=== PATIENT | male | born 1985 | race Caucasian/White ===

== ENCOUNTER 2020-10-13 09:45 | Outpatient (REF) | payer BC, SELFPAY | END 2020-10-13 09:46 | disposition home or self-care (01) | LOC: HO.LAB 09:45 | PROVIDERS: PCP Internal Medicine; Visit Provider Internal Medicine | DX: Z20.828 Contact with and (suspected) exposure to other viral communicable diseases (principal) | CPT/HCPCS: C9803; U0003 ==

== ENCOUNTER 2021-07-03 14:18 | Outpatient (REF) | payer OTHER, SELFPAY ==
[2021-07-03 15:23] LABS: Influenza A PCR NEGATIVE (Negative); Influenza B PCR NEGATIVE (Negative); Resp Syncy Virus RNA Qual PCR NEGATIVE (Negative); SARS COV2 PCR INHOUSE NEGATIVE (Negative)
== END 2021-07-03 14:19 | disposition home or self-care (01) ==
LOC: HO.LNP 14:18
PROVIDERS: Visit Provider Family Medicine
DX: Z20.822 Contact with and (suspected) exposure to COVID-19 (principal)
CPT/HCPCS: 0241U

== ENCOUNTER 2021-07-07 11:47 | Outpatient (REF) | payer OTHER, SELFPAY ==
[2021-07-07 13:07] LABS: Influenza A PCR NEGATIVE (Negative); Influenza B PCR NEGATIVE (Negative); Resp Syncy Virus RNA Qual PCR NEGATIVE (Negative); SARS COV2 PCR INHOUSE NEGATIVE (Negative)
== END 2021-07-07 11:48 | disposition home or self-care (01) ==
LOC: HO.LNP 11:47
PROVIDERS: Visit Provider Family Medicine
DX: Z20.822 Contact with and (suspected) exposure to COVID-19 (principal)
CPT/HCPCS: 0241U

== ENCOUNTER 2021-11-20 02:29 | Emergency (ER) | payer OTHER, SELFPAY ==
[2021-11-20 03:00] VITALS: BP 131/77; PULSE 96; RESP 16; TEMP 36.6; O2SAT 96; BMI 23.6
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
[2021-11-20] MEDS: Diphth,Pertus(ACell),Tet Adult 0.5 ML SYRINGE IM (04:15)
--- NOTE | 2021-11-20 04:37 | PC.NURSE ---
Reviewed pt care plan and discharge instructions. Pt verbalized understanding.
[2021-11-20 07:33] LABS: HIV AB/AG Nonreactive (Nonreactive); HIV Num 1 0.07 S/CO (0.00-0.99); ~HepC Num1 0.06 S/CO (0.00-0.79); ~Hepatitis C Antibody Nonreactive (Nonreactive)
== END 2021-11-20 04:38 | disposition home or self-care (01) ==
PROVIDERS: Emergency Provider Student in an Organized Health Care Education/Training Program; PCP Internal Medicine
DX: S00.31XA Abrasion of nose, initial encounter (principal); S10.91XA Abrasion of unspecified part of neck, initial encounter; S01.21XA Laceration without foreign body of nose, initial encounter; Y35.891A Legal intervention involving other specified means, law enforcement official injured, initial encounter; Y93.89 Activity, other specified; Y92.410 Unspecified street and highway as the place of occurrence of the external cause; Y99.0 Civilian activity done for income or pay
CPT/HCPCS: 36415; 86803; 87389; 90471; 90715; 99283; 99284

== ENCOUNTER → 2021-11-25 09:14 | Outpatient (BNVA) | payer OTHER, SELFPAY | PROVIDERS: PCP Internal Medicine; Visit Provider Physician Assistant Medical | DX: Z77.21 Contact with and (suspected) exposure to potentially hazardous body fluids (principal) | CPT/HCPCS: 36415; 84450; 84460; 86706; 99202 ==

== ENCOUNTER → 2022-01-13 09:03 | Outpatient (BNVA) | payer OTHER, SELFPAY | PROVIDERS: PCP Internal Medicine | DX: Z77.21 Contact with and (suspected) exposure to potentially hazardous body fluids (principal) | CPT/HCPCS: 36415; 84450; 84460; 87389; 99211 ==

== ENCOUNTER → 2022-02-19 08:15 | Outpatient (BNVA) | payer OTHER, SELFPAY | PROVIDERS: PCP Internal Medicine | DX: Z77.21 Contact with and (suspected) exposure to potentially hazardous body fluids (principal) | CPT/HCPCS: 36415; 84450; 84460; 86803; 87389; 99211 ==

== ENCOUNTER 2022-05-04 11:42 | Outpatient (REF) | payer OTHER, SELFPAY ==
[2022-05-04 13:37] LABS: Hematocrit 44.3 % (42.0-52.0); Hemoglobin 15.4 g/dl (14.0-18.0); Mean Corpuscular HGB Conc 34.8 g/dl (31.0-36.0); Mean Corpuscular Hemoglobin 32.4 pg (27.0-33.0); Mean Corpuscular Volume 93.1 fL (80.0-98.0); Mean Platelet Volume 10.9 fL (9.4-12.4); Platelet Count 186 X10*3/uL (160-400); Red Blood Count 4.76 X10*6/uL (4.60-5.80); Red Cell Distribution Width 11.9 % (11.0-16.0); White Blood Count 6.3 X10*3/uL (4.8-10.8)
[2022-05-04 13:57] LABS: Alanine Aminotransferase 27 U/L (0-40); Albumin Level 4.8 g/dL (3.5-5.0); Alkaline Phosphatase 66 U/L (39-117); Anion Gap 11 (12-20); Aspartate Amino Transferase 19 U/L (5-37); Bilirubin Total 0.8 mg/dL (0.0-1.0); Blood Urea Nitrogen 17 mg/dL (9-16); Calcium 9.4 mg/dL (8.4-10.2); Carbon Dioxide 28 mmol/L (22-29); Chloride 106 mmol/L (96-108); Cholesterol 173 mg/dL; Estimated Glomerular Filt Rate > 60; Glucose Random 86 mg/dL (60-115); HDL Cholesterol 51 mg/dL; LDL Cholesterol Calculated 90 mg/dl; Potassium 4.6 mmol/L (3.3-5.1); Sodium 140 mmol/L (135-145); Total Protein 7.7 g/dL (6.5-8.0); Triglycerides 160 mg/dL
[2022-05-04 14:09] LABS: TSH reflex Free T4 1.74 uIU/mL (0.32-4.0)
== END 2022-05-04 11:43 | disposition home or self-care (01) ==
LOC: HO.WFDLDS 11:42
PROVIDERS: Visit Provider Hospitalist
DX: Z00.00 Encounter for general adult medical examination without abnormal findings (principal)
CPT/HCPCS: 36415; 80053; 80061; 84443; 85027

== ENCOUNTER 2022-12-15 11:33 | Outpatient (REF) | payer OTHER, SELFPAY | END 2022-12-15 11:34 | disposition home or self-care (01) | LOC: HO.10HDLNP 11:33 | PROVIDERS: Visit Provider Otolaryngology | DX: H92.01 Otalgia, right ear (principal); H60.90 Unspecified otitis externa, unspecified ear | CPT/HCPCS: 87070; 87102; 87205 ==

== ENCOUNTER 2022-12-23 14:31 | Outpatient (REF) | payer OTHER, SELFPAY ==
[2022-12-24 12:22] LABS: Appearance Urine Cloudy; Color Urine Yellow; Glucose Urine UA Negative (Negative); Leukocyte Esterase Urine Negative (Negative); Nitrite Urine Negative (Negative); PH 5.5 (5.0-9.0); Specific Gravity - Urine 1.025 (1.005-1.025); Urine Blood Negative (Negative); Urine Ketones Negative (Negative); Urine Protein Negative (Neg-Trace)
[2022-12-24 17:03] LABS: CT PCR NOT DETECTED (Not Detect.); NG PCR NOT DETECTED (Not Detect.)
== END 2022-12-23 14:32 | disposition home or self-care (01) ==
LOC: HO.LAB 14:31
PROVIDERS: Visit Provider Nurse Practitioner Family
DX: Z20.2 Contact with and (suspected) exposure to infections with a predominantly sexual mode of transmission (principal)
CPT/HCPCS: 0353U; 81003

== ENCOUNTER 2022-12-24 07:05 | Outpatient (REF) | payer OTHER, SELFPAY ==
[2022-12-24 12:23] LABS: Syphilis Screen Nonreactive (Nonreactive)
[2022-12-24 13:06] LABS: HBS Num1 > 1000.00 mIU/mL (0-7.99); HBc Num1 0.05 S/CO (0.00-0.79); HBsAGNum1 0.32 S/CO (0.00-0.99); Hepatitis B Core Antibody Nonreactive (Nonreactive); Hepatitis B Surface Antigen Negative (Negative); ~HepC Num1 0.06 S/CO (0.00-0.79); ~Hepatitis C Antibody Nonreactive (Nonreactive)
[2022-12-24 13:07] LABS: ~Hepatitis B Surface Antibody REACTIVE (Nonreactive)
[2022-12-24 14:14] LABS: HIV AB/AG Nonreactive (Nonreactive); HIV Num 1 0.07 S/CO (0.00-0.99)
== END 2022-12-24 07:06 | disposition home or self-care (01) ==
LOC: HO.WFDLDS 07:05
PROVIDERS: Visit Provider Nurse Practitioner Family
DX: Z20.2 Contact with and (suspected) exposure to infections with a predominantly sexual mode of transmission (principal); Z11.4 Encounter for screening for human immunodeficiency virus [HIV]
CPT/HCPCS: 36415; 86704; 86706; 86780; 86803; 87340; 87389

== ENCOUNTER 2024-12-10 14:41 | Outpatient (AMB) | payer BC, SELFPAY ==
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
[2024-12-10 14:47] VITALS: BP 112/84; PULSE 102; RESP 12; O2SAT 98; BMI 28.8
== END 2024-12-10 15:27 | disposition home or self-care (01) ==
PROVIDERS: PCP Internal Medicine; Visit Provider Internal Medicine
DX: Z00.00 Encounter for general adult medical examination without abnormal findings (principal); M79.662 Pain in left lower leg; H92.03 Otalgia, bilateral; G89.29 Other chronic pain; F41.8 Other specified anxiety disorders

== ENCOUNTER 2025-06-04 09:25 | Outpatient (REF) | payer BC, SELFPAY ==
--- OUTSIDE RECORDS SUMMARY | 2025-06-04 09:46 | XMS_ITS | Continuity of Care Document ---
Author Name [facility] Organization [facility] Care Team Providers Care Coating Line Worker Name Role Phone [facility] Unavailable Unavailable Problems Combined list of problems from Department of Defense and Veterans Affairs facilities. It does not include entries that were removed or entered in error. Problem Status Onset Date Problem Type Date of Resolution Comments Source Cervical spondylosis without myelopathy Active Condition [facility] Myofascial pain Active Condition [facility] MUSCLE SPASM Active Condition MUSCLE SPASM: Neck and shoulder symptoms c/w acute muscle spasm - decreased range of motion, pain with motion, sharp pain during movement without traumatic injury. Will treat conservatively at this time. No evidence of neurologic dysfunction or involvement. Methocarbamol 500mg; 1-2 tabs q8 prn spasm #24 RF0; pt educated re: risk of medication use Ibuprofen 800mg TID #30 RF0 DoD BRONCHITIS Inactive Condition BRONCHITI S: pt appeared to have been forced by superiors to come to sick clinic, and he only complains of a cough. likely has a mild viral bronchitis. given benzonatate 100mg for 5 days. will return to clinic if sx persist or worsen. DoD visit for: issue repeat prescription for appliance Inactive Condition DoD CONTUSION WITH INTACT SKIN SURFACE - (LOWER) LEG Inactive Condition DoD visit for: examination of subpopulation Active Condition DoD CONTACT DERMATITIS Active Condition DoD UPPER RESPIRATORY INFECTION ACUTE Active Condition DoD visit for: ears / hearing exam Inactive Condition DoD ASSESSMENT OF PATIENT CONDITION WORK-RELATED Active Condition DoD Vaccines Prophylactic Need Against Viral Diseases Inactive Condition DoD Vaccines Prophylactic Need Active Condition DoD Vaccines Prophylactic Need Against Combinations Of Diseases Active Condition DoD Vaccines Prophylactic Need Against Bacterial Diseases Active Condition DoD Spectacles Services Fitting Monofocals (Not For Aphakia) Active Condition DoD visit for: services physical Active Condition DoD visit for: screening exam pulmonary tuberculosis Inactive Condition DoD Allergies, Adverse Reactions, Alerts Combined list of allergies from Department of Defense and Veterans Affairs facilities. It does not include entries that were removed or entered in error. Substance Category Reaction Severity Reaction type Status Date Reported Comments Source No Known Allergies Drug allergy (disorder) active 05/14/2008 [facility] Immunizations Combined list of available immunizations from the Department of Defense and Veterans Affairs facilities. Immunization Series Date Given Administered By Site Reaction Lot Number CVX Code Drug Senior Project Accountant Status Comments Source COVID-19 (MODERNA), MRNA, LNP-S, PF, 100 MCG/0.5 ML DOSE 1 2020 207 complet ed [facility] [place] [facility] [facility] FLU,3 YRS (HISTORICAL) 2014 88 complet ed [facility] [facility] Influenza, seasonal, injectable 1 2012 [id number] Sanofi Pasteur ([facility]) complet ed Influenza , seasonal, injectabl e DoD anthrax vaccine 4 2012 [id number] [facility] ([facility]) complet ed anthrax vaccine DoD typhoid Vi capsular polysaccharid e vaccine 1 2012 [id number] Sanofi Pasteur ([facility]) complet ed typhoid Vi capsular polysacch aride vaccine DoD Influenza, seasonal, injectable, preservative free 1 2011 [id number] [employer] (CS) complet ed Influenza , seasonal, injectabl e, preservat hayes free DoD anthrax vaccine 3 2009 [id number] 24 [facility] ([facility]) complet ed anthrax vaccine DoD Novel influenza-H1N 1-09, injectable 1 2008 [id number] 127 Sanofi Pasteur ([facility]) complet ed Novel influenza -[id number], injectabl e DoD influenza virus vaccine, live, attenuated, for intranasal use 1 2008 UNK 111 Unknown (UNK) comple t ed influenza virus vaccine, live, attenuate d, for intranasa l use DoD vaccinia (smallpox) vaccine 1 2008 UNK 75 Unknown (UNK) comple t ed vaccinia (smallpox ) vaccine DoD anthrax vaccine 2 2008 [id number] [facility] ([facility]) complet ed anthrax vaccine DoD vaccinia (smallpox) vaccine 1 2008 UNK 75 Unknown (UNK) comple t ed vaccinia (smallpox ) vaccine DoD anthrax vaccine 1 2008 [id number] 24 [facility] ([facility]) complet ed anthrax vaccine DoD typhoid Vi capsular polysaccharid e vaccine 1 2008 [id number] 101 Sanofi Pasteur ([facility]) complet ed typhoid Vi capsular polysacch aride vaccine DoD hepatitis B vaccine, adult dosage 3 2008 [id number] 43 [employer] (SKB) complet ed hepatitis B vaccine, adult dosage DoD hepatitis A vaccine, adult dosage 3 2008 [id number] 52 [employer] (SKB) complet ed hepatitis A vaccine, adult dosage DoD influenza virus vaccine, live, attenuated, for intranasal use 1 2008 [id number] [employer]. (MED) complet ed influenza virus vaccine, live, attenuate d, for intranasa l use DoD hepatitis A and hepatitis B vaccine 2 2007 [id number] 104 [employer] (SKB) complet ed hepatitis A and hepatitis B vaccine DoD poliovirus vaccine, inactivated 1 2007 [id number] 10 Sanofi Pasteur ([facility]) complet ed polioviru s vaccine, inactivat ed DoD hepatitis A and hepatitis B vaccine 1 2007 [id number] 104 [employer] (SKB) complet ed hepatitis A and hepatitis B vaccine DoD meningococcal polysaccharid e (groups A, C, Y and W-135) diphtheria toxoid conjugate vaccine (MCV4P) 1 2007 [id number] 114 Sanofi Pasteur ([facility]) complet ed meningoco ccal polysacch aride (groups A, C, Y and W-135) diphtheri a toxoid conjugate vaccine (MCV4P) DoD tetanus toxoid, reduced diphtheria toxoid, and acellular pertu is vaccine, adsorbed 1 2007 [id number] 115 Sanofi Pasteur ([facility]) complet ed tetanus toxoid, reduced diphtheri a toxoid, and acellular pertussis vaccine, adsorbed DoD measles, mumps and rubella virus vaccine 1 2007 UNK 03 Unknown (UNK) Not Given measles, mumps and rubella virus vaccine DoD varicella virus vaccine 1 2007 UNK 21 Unknown (UNK) Not Given varicella virus vaccine DoD Encounters Combined list of: 1) Encounters from Department of Veterans Affairs facilities going backup to the last 18 months, not all VA inpatient encounters are included; 2) Encounters from the Department of Defense facilities going backup to 280 months. Location Location Details Encounter Type Encounter Number Reason For Visit Attending Provider ADM Date DC Date Status Disposition Source [employer](SHANNON C Post Immunizat ion) OUTPATIENT [id number] IET PPD MARKUS QUIÑONES Lexie 03/08 Released w/o Limitations [employer](M AHC Post Immuniz ation) [employer](PES Optometry -Trainee) OUTPATIENT [id number] TAYLOR POLANCO III 03/08 Released w/o Limitations [employer](P ES Optomet ry-Jarrod nee) [employer] [facility] [employer](SHANNON C Post Immunizat ion) OUTPATIENT [id number] IET IMMUNIZ ATIONS BROOKEKEVYN 03/11 Released w/o Limitations [employer](M AHC Post Immuniz ation) [employer](IEP Hearing Conservat ion) OUTPATIENT [id number] POLI WRIGHT 03/18 Released w/o Limitations [employer] [facility] [employer](I EP Hearing Conserv ation) [employer](TMC Ambulator y) OUTPATIENT [id number] SAURABH BRADY 03/25 Released w/o Limitations [facility](T MC Ambulat ory) [place]) OUTPATIENT [id number] alie ( 1174,mo b) EDWIN HAILE 06/25 Released w/o Limitations [place] OUTPATIENT [id number] 01/21 Released w/o Limitations [facility] Facility OUTPATIENT [id number] 01/21 Released w/o Limitations Theater Facilit y Madhu starks [facility]([place] [facility]) OUTPATIENT [id number] AMAURI BARKER 04/23 Released w/o Limitations Madhu montejo [facility]([place] [facility] Read[facility] ) Madhu starks [facility]([place] [facility]) OUTPATIENT [id number] Notes Entered by: Jodi BECKMAN 26 Apr 2013 1052 ------- ------- ------- ------- -- SRP/IMM LEO THIBODEAUX 04/26 Released w/o Limitations Madhu LINTON [facility]inee Readine [facility] ) Theater Facility OUTPATIENT [id number] Theater Provider 07/22 Released w/o Limitations [facility] OUTPATIENT [id number] Theater Provider 01/17 Released w/o Limitations [facility] Facility OUTPATIENT [id number] Theater Provider 01/24 Released w/o Limitations Theater Facilit y [employer] [facility]) OUTPATIENT [id number] Notes Entered by: JULIA DIAS 05 Feb 2014 1542 ------- ------- ------- ------- -- review of records de/mob JULIA DIAS 02/05 Released w/o Limitations [employer] [employer] [id number] Notes Entered by: DOLORES VILLATORO 06 Mar 2014 0908 ------- ------- ------- ------- -- ROBERT CHENG 03/06 Released w/o Limitations [facility](F D Demobil ization [facility]) Procedures Combined list of: 1) Procedures from Department of Veterans Affairs facilities going back up to thelast 18 months, not all VA non-surgical procedures are included; 2) All procedures from the Department of Defense facilities. Procedure Procedure Type Code Date Perfomer Comments Sour e Screening Test Of Visual Acuity, Quantitative, Bilateral Screening Test Of Visual Acuity, Quantitative, Bilateral 93913 03/06/20 14 JORDI MAHARAJ DoD Venipuncture Venipuncture 72796 03/06/20 14 JORDI MAHARAJ HIV DRAWN DoD Threshold Audiogram (Pure Tone) Threshold Audiogram (Pure Tone) 35041 03/06/20 14 JORDI MAHARAJ H1 DoD Psychiatric Therapy Preparation of Psychiatric Status Report Psychiatric Therapy Preparation of Psychiatric Status Report [id number] 02/07/20 14 JULIA DIAS Administrative Review Of Records In Preparation For Demobilization At [facility] Completed. Report Generated For [facility]. [facility] Skin Test Anergy Tuberculin Intradermal Skin Test Anergy Tuberculin Intradermal 99732 04/26/20 13 LEO BECKMAN [facility] Venipuncture Venipuncture 43872 04/23/20 13 APRYL RASMUSSEN Ear Protector Attenuation Measurements Ear Protector Attenuation Measurements 64161 04/23/20 13 APRYL RASMUSSEN Social Work Individual Outpatient Counseling 20-30 Minutes Social Work Individual Outpatient Counseling 20-30 Minutes [id number] 07/03/20 09 ROWAN THAKUR [facility] Ear Protector Attenuation Measurements Ear Protector Attenuation Measurements 04875 03/19/20 08 POLI WRIGHT Threshold Audiogram (Pure Tone) Threshold Audiogram (Pure Tone) 98855 03/19/20 08 POLI WRIGHT Audiometry Group Testing Audiometry Group Testing 70968 03/19/[address] [facility] Educational Services 03/19/[address] Services Analysis Of Computerized Data Special [employer] Analysis Of Computerized Data 36418 03/19/20 08 POLI WRIGHT Ear mold/insert, not disposable, any type 03/19/20 08 POLI WRIGHT Hepatitis A And Hepatitis B (Intramuscular Use) Adult Dosage Hepatitis A And Hepatitis B (Intramuscular Use) Adult Dosage 01232 03/11/20 08 ERIBERTO GRESHAM [facility] Vaccines Viral Polio, Inactivated (Salk) Vaccines Viral Polio, Inactivated (Salk) 37549 03/11/20 08 ERIBERTO GRESHAM [facility] Immunization Administration Each Additional Vaccine 03/11/20 08 ERIBERTO GRESHAM [facility] Meningococcal Polysaccharide Vaccine (Active) Meningococcal Polysaccharide Vaccine (Active) 21431 03/11/20 08 ERIBERTO GRESHAM [facility] Immunization Administration One Vaccine Immunization Administration One Vaccine 24749 03/11/20 08 ERIBERTO GRESHAM [facility] Td Vaccine Td Vaccine 59832 03/11/20 08 ERIBERTO GRESHAM [facility] [employer] Services Fitting Monofocals (Not For Aphakia) [employer] Fitting Monofocals (Not For Aphakia) 88439 03/08/20 08 TAYLOR POLANCO III [facility] Visual Function Screening Visual Function Screening 57567 03/08/20 08 TAYLOR POLANCO III [facility] Skin Test Anergy Tuberculin Intradermal Skin Test Anergy Tuberculin Intradermal 06048 03/08/20 08 MARKUS QUIÑONES [facility] Immunization Administration One Vaccine Immunization Administration One Vaccine 79601 03/08/20 08 MARKUS QUIÑONES [facility] SKIN TEST; TUBERCULOSIS, INTRADERMAL 04/26/20 13 [facility] EAR PROTECTOR ATTENUATION MEASUREMENTS 04/23/20 13 [facility] INDIVIDUAL PSYCHOTHERAPY, INSIGHT ORIENTED, BEHAVIOR MODIFYING AND/OR SUPPORTIVE, IN AN OFFICE OR OUTPATIENT FACILITY, APPROXIMATELY 20 TO 30 MINUTES [id number] WITH THE PATIENT 07/03/20 09 [facility] COLLECTION OF VENOUS BLOOD BY VENIPUNCTURE 06/30/20 09 [facility] ANALYSIS OF CLINICAL DATA STORED IN COMPUTERS (EG, ECGS, BLOOD PRESSURES, HEMATOLOGIC DATA) 03/18/20 08 [facility] HEPATITIS A AND HEPATITIS B VACCINE (HEPA-HEPB), ADULT DOSAGE, FOR INTRAMUSCULAR USE 03/11/20 08 [facility] VIS FUNCT SCREEN,AUTOMAT/THA I-AUTOMAT BILAT QUANT DETERM VISUAL ACUITY,OCULAR ALIGN,COLOR VISION,PSEUDOISOCH ROMAT PLATES,& FIELD VIS (MAY INC ALL/SOME SCRN DETERM FOR CONTRAST SENSITIV,VIS UND GLARE) 03/08/20 08 [facility] SKIN TEST; TUBERCULOSIS, INTRADERMAL 03/08/20 08 [facility] SCREENING TEST OF VISUAL ACUITY, QUANTITATIVE, BILATERAL 03/06/20 14 [facility] Social History Combined list of available smoking, tobacco, and other social history from Department of Defense and Veterans Affairs facilities. Social History Type Response Date Comment Source Tobacco smoking status [facility] NEVER USED 04/28/2020 [facility] [place] [facility] History of tobacco use LIFETIME NON-TOBACCO USER [facility] History of tobacco use LIFETIME NON-TOBACCO USER 09/29/2015 [facility] History of tobacco use LIFETIME NON-TOBACCO USER 10/11/2014 non tobacco user [facility] [place] [facility] This section is an empty social history section. [facility]
--- OUTSIDE RECORDS SUMMARY | 2025-06-04 09:47 | XMS_ITS | Encounter Summary ---
Author Organization [facility] Address [address] [address] Phone Care Team Providers Care Manager Of Marketing Name Role Phone Nam Stevenson DO Primary Care Provider [phone] Nam Stevenson DO Unavailable Encounter Details Date Type Department Care Team (Late st Contact Info) Description 03/14/2018 Ancillary Orders Virtual Department [address] [place] [address] Ana Velazco, WELL SITE DRILLING ENGINEER [address] [place] [address] [email or web address] Strain of right biceps muscle, initial encounter Social History Tobacco Use Types Packs/Day Years Used Date Smoking Tobacco: Never Smokeless Tobacco: Never Alcohol Use Standard Drinks/Week Comments Yes 0 (1 standard drink = 0.6 oz pur e alcohol) Sex and Gender Information Value Date Recorded Sex Assigned at Not on file Legal Sex Male 9:16 PM EDT Gender Identity Not on file Sexual Orientation Not on file documented as of this encounter Plan of Treatment Not on file documented as of this encounter Visit Diagnoses Diagnosis Strain of right biceps muscle, initial encounter documented in this encounter Care Teams Manager Of Marketing Relationship Specialty Start Date End Date Nam Stevenson DO PCP - General Internal Medicine 11/23/17 Nam Stevenson DO [address] [place] [id number] [email or web address] Insurance Assigned Provider 03/03/19 03/07/21 documented as of this encounter Additional Source Comments The information contained in this document represents components of the legal health record. It is not the complete legal health record.[facility]
[2025-06-04 11:14] LABS: MANUAL DIFF FLAG NO
[2025-06-04 11:28] LABS: Hematocrit 42.7 % (42.0-52.0); Hemoglobin 15.2 g/dl (14.0-18.0); Imm Gran Abs Auto 0.03 X10*3/uL (0.00-0.03); Imm Gran Pct Auto 0.6 % (0.0-0.4); Lymphocytes Absolute Auto 1.9 X10*3/uL (1.2-4.9); Mean Corpuscular HGB Conc 35.6 g/dl (31.0-36.0); Mean Corpuscular Hemoglobin 32.8 pg (27.0-33.0); Mean Corpuscular Volume 92.2 fL (80.0-98.0); NRBC Abs Auto 0.000 X10*3/uL (0.0-0.012); NRBC Pct Auto 0.0 /100WBC (0.0-0.2); Platelet Count 201 X10*3/uL (160-400); Red Blood Count 4.63 X10*6/uL (4.60-5.80); White Blood Count 5.3 X10*3/uL (4.8-10.8)
[2025-06-04 11:45] LABS: Hemoglobin A1C 130.8947 umol/L; Total Hemoglobin (HGBA1C) 3968.9072 umol/L
[2025-06-04 12:03] LABS: Syphilis Screen Nonreactive (Nonreactive)
[2025-06-04 12:04] LABS: HBsAGNum1 0.31 S/CO (0.00-0.99); HIV Num 1 0.05 S/CO (0.00-0.99); Hepatitis B Surface Antigen Negative (Negative); ~HepC Num1 0.08 S/CO (0.00-0.79); ~Hepatitis C Antibody Nonreactive (Nonreactive)
[2025-06-04 12:07] LABS: Alanine Aminotransferase 42 U/L (0-40); Albumin Level 4.8 g/dL (3.5-5.0); Alkaline Phosphatase 63 U/L (39-117); Anion Gap 10 (12-20); Aspartate Amino Transferase 26 U/L (5-37); Blood Urea Nitrogen 12 mg/dL (9-16); Calcium 9.6 mg/dL (8.4-10.2); Carbon Dioxide 28 mmol/L (22-29); Chloride 107 mmol/L (96-108); Cholesterol 158 mg/dL (<200); Estimated Glomerular Filt Rate > 60; HDL Cholesterol 46 mg/dL (>40); Potassium 4.1 mmol/L (3.3-5.1); Sodium 141 mmol/L (135-145); Total Protein 7.7 g/dL (6.5-8.0); Triglycerides 109 mg/dL (<150)
[2025-06-04 13:33] LABS: CT PCR Urine NOT DETECTED (Not Detect.); NG PCR Urine NOT DETECTED (Not Detect.)
== END 2025-06-04 09:26 | disposition home or self-care (01) ==
LOC: HO.WFDLDS 09:25
PROVIDERS: Visit Provider Internal Medicine
DX: Z00.00 Encounter for general adult medical examination without abnormal findings (principal); Z20.2 Contact with and (suspected) exposure to infections with a predominantly sexual mode of transmission; R35.89 Other polyuria; F41.8 Other specified anxiety disorders; Z13.228 Encounter for screening for other metabolic disorders; Z13.0 Encounter for screening for diseases of the blood and blood-forming organs and certain disorders involving the immune mechanism; Z13.220 Encounter for screening for lipoid disorders; Z11.3 Encounter for screening for infections with a predominantly sexual mode of transmission; Z11.59 Encounter for screening for other viral diseases; Z11.8 Encounter for screening for other infectious and parasitic diseases; Z11.4 Encounter for screening for human immunodeficiency virus [HIV]; Z13.6 Encounter for screening for cardiovascular disorders
CPT/HCPCS: 36415; 80053; 80061; 83036; 84443; 85025; 86341; 86780; 86803; 87340; 87389; 87491; 87591